=== PATIENT | male | born 1975 | race Two or more races ===

== ENCOUNTER 2021-07-21 19:44 | Inpatient (IN) | payer MEDICAID ==
[~2021-07-21] VITALS: Ht 167.6 cm; Wt 53.1 kg
[2021-07-21] MEDS ORDERED: IV NORMAL SALINE 1000 ML BAG IV ONE (20:00)
[2021-07-21 20:19] LABS: CARBON DIOXIDE 24 mmol/L (21-32); CHLORIDE 93 mmol/L (98-107); CREATININE 1.1 mg/dL (0.6-1.3); GLUCOSE 167 mg/dL (74-106); HEMATOCRIT 36.2 % (36.7-47.1); MEAN CORPUSCULAR HEMOGLOBIN 33.6 uug (23.8-33.4); MEAN CORPUSCULAR VOLUME 97.2 fL (73.0-96.2); PLATELET COUNT (AUTO) 106 K/uL (152-348); POTASSIUM 3.2 mmol/L (3.5-5.1); UREA NITROGEN, BLOOD 13 mg/dL (7-18)
[2021-07-21 20:24] LABS: ETHANOL 7 MG/DL (0-0)
[2021-07-21 20:28] LABS: ALANINE AMINOTRANSFERASE 159 U/L (16-63); ALKALINE PHOSPHATASE 175 U/L (50-136); ASPARTATE AMINOTRANSFERASE 343 U/L (15-37); BILIRUBIN,DIRECT 2.6 mg/dL (0.0-0.2); BILIRUBIN,TOTAL 3.6 mg/dL (0.2-1.0); TOTAL PROTEIN, SERUM 6.5 g/dL (6.4-8.2)
[2021-07-21] MEDS ORDERED: THIAMINE HCL 200 MG/2 ML VIAL IV ONE (20:45)
[2021-07-21] MEDS ORDERED: FOLIC ACID 5 MG/ML VIAL IV ONE (20:45)
[2021-07-21] MEDS ORDERED: IV NS 1000 ML 1,000 ML IV ONE (20:45)
[2021-07-21] MEDS ORDERED: CEFEPIME HCL 2 G in IV DEXTROSE 5% 100 ML IV ONE (20:45)
[2021-07-21] MEDS ORDERED: LORAZEPAM 2 MG/1 ML VIAL IV ONE ×3 (20:45→22:30)
--- NOTE | 2021-07-21 21:10 | NUR ---
CALLED [facility] TO TRANSPORT PATIENT TO [place] FOR CT SCAN DUE TO CT SCAN DOWN AT [facility]. ETS IS 90MINS.
[2021-07-21 21:38] LABS: *BILIRUBIN,URIN NEGATIVE (NEGATIVE); *CLARITY,URINE CLEAR (CLEAR); *COLOR,URINE YELLOW (YELLOW); *KETONES,URINE NEGATIVE (NEGATIVE); *UROBILINOGEN,URINE 0.2 E.U./dl (NORMAL); LEUKOCYTE ESTERASE ,URINE NEGATIVE (NEGATIVE); NITRITE, URINE NEGATIVE (NEGATIVE); PH,URINE 6.5 (5.0-8.0); UGLUCOSE NEGATIVE (NEGATIVE)
[2021-07-21 21:40] LABS: *BLOOD, URINE TRACE (NEGATIVE)
[2021-07-21] MEDS ORDERED: CEFEPIME HCL 1 G VIAL ONE ×2 (21:43→21:44)
[2021-07-21] MEDS ORDERED: MAGNESIUM SULFATE/D5W 200 ML ONE (21:43)
[2021-07-21] MEDS ORDERED: THIAMINE HCL 200 MG/2 ML VIAL ONE (21:43)
[2021-07-21] MEDS ORDERED: LORAZEPAM 2 MG/1 ML VIAL ONE ×3 (21:44→22:29)
[2021-07-21 21:47] LABS: BACTERIA,URINE NONE SEEN /HPF (NONE SEEN); RBC,URINE 0-3 /HPF (0-3); SQUAMOUS EPITHELIAL CELL,UR FEW /HPF (NONE SEEN); WBC,URINE NONE SEEN /HPF (0-3)
[2021-07-21 21:52] LABS: *AMPHETAMINE, URINE NEGATIVE (NEGATIVE); *CANNABINOID, URINE NEGATIVE (NEGATIVE); *COCCAINE, URINE NEGATIVE (NEGATIVE); *OPIATE, URINE NEGATIVE (NEGATIVE); *PHENCYCLIDINE SCREEN,URINE NEGATIVE (NEGATIVE)
[2021-07-21] MEDS ORDERED: ONDANSETRON 4 MG/2 ML VIAL ONE (21:53)
--- NOTE | 2021-07-21 21:57 | NUR ---
PATIENT WAS RECIEVING 2MG OF ATIVAN, PATIENT HAD A WITNESS SEIZURE(CONVULSING) ABOUT 30 SECONDS.
--- NOTE | 2021-07-21 21:58 | NUR ---
DR BROCK INTO EVAL PATIENT.
[2021-07-21] MEDS ORDERED: ONDANSETRON 4 MG/2 ML VIAL IV ONE (22:00)
[2021-07-21] MEDS: MAGNESIUM SULFATE/D5W 100 ML IV SCH ×2 (22:06→23:00)
[2021-07-21] MEDS ORDERED: PHENOBARBITAL SODIUM 130 MG/1 ML DISP.SYRIN IV ONE (22:15)
--- NOTE | 2021-07-21 23:23 | NUR ---
CALLED [facility], SPOKE WITH MANUEL WHO NO ALS CREW AVAILABLE AT THIS TIME.
--- NOTE | 2021-07-22 00:07 | NUR ---
CALLED [facility] TO TRANSPORT PATIENT TO [place] CT SCAN, BUT NO ALS AVAILABLE AT THIS TIME.
--- NOTE | 2021-07-22 00:17 | NUR ---
CALLED [facility], WAITING FOR ANDREW DELATORRE NP TO CALL BACK.
--- NOTE | 2021-07-22 00:20 | NUR ---
CALLED [facility] TO TRANSPORT PATIENT TO [place] FOR CT SCAN BUT NO ALS CREW AVAILABLE.
--- NOTE | 2021-07-22 00:28 | NUR ---
CALLED [facility] BUT NO ALS CREW TO TRANSPORT PATIENT TO [place] FOR CT SCAN.
--- NOTE | 2021-07-22 00:36 | NUR ---
CALLED [facility]. ETA IS 60MINS.
--- NOTE | 2021-07-22 01:37 | NUR ---
GAVE SBAR REPORT TO [facility] [address] SCAN OF HEAD.
--- NOTE | 2021-07-22 02:18 | NUR ---
PATIENT BACK FROM CT SCAN FROM [facility] WITH NO DISTRESS NOTED.
--- NOTE | 2021-07-22 02:19 | NUR ---
DR BROCK SPOKE WITH MAULIK DURHAM DNP [facility] WHO ACCEPT PATIENT TO TELE FLOOR.
[2021-07-22] MEDS ORDERED: THIAMINE HCL 200 MG/2 ML VIAL IV ONE (02:30)
[2021-07-22] MEDS ORDERED: THIAMINE HCL 200 MG/2 ML VIAL ONE (02:31)
--- NOTE | 2021-07-22 04:18 | NUR ---
transfered to 3rd floor via [place] with no distress noted.
[2021-07-22 04:40] VITALS: BP 123/73
[2021-07-22] MEDS ORDERED: ONDANSETRON 4 MG/2 ML VIAL IV PRN (05:15)
[2021-07-22] MEDS ORDERED: IV NS 1000 ML 1,000 ML IV ONE (05:15)
[2021-07-22] MEDS ORDERED: ACETAMINOPHEN 325 MG TABLET PO PRN (05:15)
[2021-07-22] MEDS ORDERED: REMEDY ESSENTIAL ZINC PASTE 113 GM TP PRN (05:15)
[2021-07-22] MEDS ORDERED: IV NS 1000 ML 1,000 ML IV PRN (05:15)
[2021-07-22] MEDS ORDERED: LORAZEPAM 2 MG/1 ML VIAL IV PRN (05:15)
--- NOTE | 2021-07-22 05:52 | NUR ---
admitted this45 y.o.male with history of alcoholism brought by EMS, from a construction site,his co worker noted that he was shaking.according to pt. he consumes alcohol on a daily basis but missed for the last 2 days. his alcohol level upon arrival to Er was low.had a seizure in Er that lasted 30-40 seconds.brought to the floor via gurney,,alert,oriented x 2,on tele sinus r, no attempts of getting out of bed, on room air,100% saturation,vital signs w/i normal limits.iv site g 18 right ac.kept dry and clean. no distress noted.
[2021-07-22 06:39] LABS: MEAN CORPUSCULAR HEMOGLOBIN 33.9 uug (23.8-33.4); PLATELET COUNT (AUTO) 82 K/uL (152-348)
[2021-07-22 06:55] LABS: BILIRUBIN,TOTAL 4.9 mg/dL (0.2-1.0); CREATININE 0.9 mg/dL (0.6-1.3); MAGNESIUM 1.9 mg/dL (1.8-2.4); PHOSPHOROUS 2.5 mg/dL (2.5-4.9); POTASSIUM 3.5 mmol/L (3.5-5.1); TOTAL PROTEIN, SERUM 5.8 g/dL (6.4-8.2)
--- NOTE | 2021-07-22 07:30 | NUR ---
Received this admission from ER. Arrived before change of shift. With a diagnosis of alcohol withdrawal and seizure. Routine admission care rendered NS IV bolus given. Seen and examined by Dr Leonardo. Seizure precaution initiated.
[2021-07-22] MEDS: THIAMINE HCL 100 MG TABLET PO SCH (08:56)
[2021-07-22] MEDS: CHLORDIAZEPOXIDE HCL 25 MG CAPSULE PO SCH ×3 (08:56→17:16)
[2021-07-22] MEDS: MULTIVIT, IRON, MIN NO. 8, FA TABLET PO SCH (08:56)
[2021-07-22] MEDS: PANTOPRAZOLE SODIUM 40 MG TABLET.DR PO SCH (08:56)
--- NOTE | 2021-07-22 10:00 | NUR ---
Abdominal ultrasound done at bedside.
--- NOTE | 2021-07-22 12:00 | NUR ---
Noted heart rate elevated on activity.
[2021-07-22 12:22] VITALS: BP 103/69
[2021-07-22] MEDS: IV NS 1000 ML 1,000 ML IV PRN ×2 (13:39→23:14)
--- NOTE | 2021-07-22 15:30 | NUR ---
Patient was getting dressed to go home, redirected.
[2021-07-22 16:22] VITALS: BP 105/71
--- NOTE | 2021-07-22 18:13 | NUR ---
Eating fairly. IVF infusing. Sclera is reddened. No seizure, no tremors noted. Free from fall and injury.
--- NOTE | 2021-07-22 19:55 | NUR ---
Patient in bed alert and able to make needs known.Denies pain or discomfort at this time.On Ra.No respiratory distress noted.Iv patent and intact on left FA 20g with IVF infusing well. NSR on Tele.Seizures precaution in place. Call light with in reach .Will continue to monitor. VSs
[2021-07-22 20:13] VITALS: BP 113/76
[2021-07-23 00:09] VITALS: BP 100/63
[2021-07-23 04:55] VITALS: BP 115/76
[2021-07-23] MEDS: PANTOPRAZOLE SODIUM 40 MG TABLET.DR PO SCH (06:02)
--- NOTE | 2021-07-23 06:07 | NUR ---
Patient slept well throughout the night. No episode of seizures. Compliant with medications.Anxious about going home.NSR on tele. Denies discomfort.Uses urinal voided well. Continue seizure precautions. Call light with in reach. All needs anticipated and met accordingly.
[2021-07-23 06:52] LABS: MEAN CORPUSCULAR HEMOGLOBIN 33.7 uug (23.8-33.4); MEAN CORPUSCULAR VOLUME 97.8 fL (73.0-96.2); PLATELET COUNT (AUTO) 78 K/uL (152-348)
[2021-07-23 07:02] LABS: CREATININE 0.9 mg/dL (0.6-1.3); MAGNESIUM 1.8 mg/dL (1.8-2.4); PHOSPHOROUS 1.7 mg/dL (2.5-4.9); POTASSIUM 3.6 mmol/L (3.5-5.1)
[2021-07-23 07:05] LABS: BILIRUBIN,DIRECT 3.2 mg/dL (0.0-0.2); BILIRUBIN,TOTAL 4.7 mg/dL (0.2-1.0); TOTAL PROTEIN, SERUM 5.3 g/dL (6.4-8.2)
[2021-07-23] MEDS: THIAMINE HCL 100 MG TABLET PO SCH (09:07)
[2021-07-23] MEDS: MULTIVIT, IRON, MIN NO. 8, FA TABLET PO SCH (09:07)
[2021-07-23] MEDS: CHLORDIAZEPOXIDE HCL 25 MG CAPSULE PO SCH ×3 (09:34→16:11)
[2021-07-23] MEDS: IV NS 1000 ML 1,000 ML IV PRN (12:30)
[2021-07-23 13:33] VITALS: BP 104/49
[2021-07-23 16:02] VITALS: BP 107/67
[2021-07-23] MEDS ORDERED: SODIUM PHOSPHATE MM 15 MMOL in IV NORMAL SALINE 250 ML IV ONE (17:00)
[2021-07-23 20:00] VITALS: BP 118/79
[2021-07-24] VITALS: BP 121/77
[2021-07-24 04:00] VITALS: BP 112/62
[2021-07-24] MEDS: IV NS 1000 ML 1,000 ML IV PRN (04:30)
[2021-07-24] MEDS: PANTOPRAZOLE SODIUM 40 MG TABLET.DR PO SCH (06:42)
--- NOTE | 2021-07-24 06:52 | NUR ---
Patient AALOX4 .No concerns identified during the shift.On Ra.NSR on Tele. IV patent and intact with IVF infusing well. Compliant with medication.Continue on seizure precaution. Call light with in reach. Will endorse to oncoming shift.
[2021-07-24] MEDS ORDERED: Multivit, Iron, Min No. 8, Fa PO (07:04)
[2021-07-24] MEDS ORDERED: THIA100T13 PO (07:04)
[2021-07-24 07:45] LABS: BILIRUBIN,DIRECT 1.5 mg/dL (0.0-0.2); BILIRUBIN,TOTAL 2.4 mg/dL (0.2-1.0); TOTAL PROTEIN, SERUM 5.4 g/dL (6.4-8.2)
[2021-07-24 08:12] LABS: CREATININE 0.9 mg/dL (0.6-1.3); POTASSIUM 3.4 mmol/L (3.5-5.1)
[2021-07-24] MEDS: THIAMINE HCL 100 MG TABLET PO SCH (08:51)
[2021-07-24] MEDS: MULTIVIT, IRON, MIN NO. 8, FA TABLET PO SCH (08:51)
[2021-07-24] MEDS ORDERED: CHLORDIAZEPOXIDE HCL 25 MG CAPSULE PO SCH (09:00)
[2021-07-24] MEDS ORDERED: POTASSIUM CHLORIDE 20 MEQ TAB.PRT.SR PO ONE (09:15)
[2021-07-24] MEDS ORDERED: CHLO25CA22 PO (10:26)
[2021-07-25] MEDS ORDERED: CHLORDIAZEPOXIDE HCL 25 MG CAPSULE PO ONE (09:00)
== END 2021-07-24 10:35 | disposition home or self-care (01) | DRG 775 ==
LOC: ER 19:49 → TELE3 07-22 04:03
PROVIDERS: ADMIT Internal Medicine; ATTEND Internal Medicine
DX: F10.239 Alcohol dependence with withdrawal, unspecified (principal); G93.40 Encephalopathy, unspecified; E44.0 Moderate protein-calorie malnutrition; E87.2 Acidosis; G40.89 Other seizures; Y90.0 Blood alcohol level of less than 20 mg/100 ml; E87.6 Hypokalemia; D64.9 Anemia, unspecified; R74.01 Elevation of levels of liver transaminase levels; H11.33 Conjunctival hemorrhage, bilateral; K70.0 Alcoholic fatty liver; E80.6 Other disorders of bilirubin metabolism; Z20.822 Contact with and (suspected) exposure to COVID-19; Z68.1 Body mass index [BMI] 19.9 or less, adult
CPT/HCPCS: 36415; 70450; 71045; 76700; 83605; 83735; 84100; 84484; 85025; 85610; 87040; 93005; A4663; G0378; G0480; J0692; J2060; J2405; J3411; J3475; J3490; J7040